=== PATIENT | female | born 1950 | race Caucasian/White ===

== ENCOUNTER → 2017-04-15 | Outpatient (CLI) | payer OTHER ==
--- NOTE | ~2017-04-15 | EXE ---
[facility] [place] [address] STRESS ECHOCARDIOGRAM Name: KIRILL VALDIVIA Room #: REG [facility]#: [id number] Admission: 04/15/17 Attend Phys: Aman Caldwell MD Discharge: Date of : 50 Date of Service: 04/15/17 1122 Report #: [id number] THIS REPORT FOR: //name// APPROVED REPORT Exam: Stress Echocardiogram Indication: Dyspnea on exertion Patient Location: Out-Patient Stress Nurse: Lawanda Ibanez RN Status: routine Ht: 5 ft 6 in HR: 76 bpm BP: 166/94 mmHg Rhythm: NSR Medical History Medications: Listed on worksheet Allergies: No known drug allergies Cardiac Risk Factors: HTN Procedure The patient underwent an Exercise Stress Test using the Rajinder Protocol. Blood pressure, heart rate, and EKG were monitored. An Echocardiogram was performed by molding technician in four stages in quad fashion. At peak stress, four selected images were obtained and placed side by side with resting images for comparison. Echo Enhancing Agent Indication: Endocardial border delineation Agent(s) / Amount(s) Used: Optison 7 cc Stress Test Details Stress Test: Exercise stress testing was performed using a Rajinder protocol. HR Resting HR: 76 bpm Max Heart Rate (APMHR): 153 bpm Max HR Achieved: 131 bpm Target HR (85% APMHR): 130 bpm % of APMHR: 85 Recovery HR: 70 bpm HR response to stress: Normal HR response to stress BP Resting BP: 166/94 mmHg Max BP: 182/90 mmHg Recovery BP: 164/84 mmHg [facility] [address] [place] [address] STRESS ECHOCARDIOGRAM Name: KIRILL VALDIVIA Room #: REG [facility]#: [id number] Admission: 04/15/17 Attend Phys: Aman Caldwell MD Discharge: Date of : 50 Date of Service: 04/15/17 1122 Report #: [id number] ECG Resting ECG: Sinus Rhythm Stress ECG: Sinus Rhythm, NSSTT changes ST Change: Non-ischemic Clinical Reason for Termination: Shortness of breath. Stress Symptoms: Dyspnea Exercise duration: 8 min 12 sec Highest Stage Achieved: Stage 3: 3.4 mph at 14% grade. Exercise capacity: 10.10 METs Pre-Stress Echo The resting Echocardiogram showed normal left ventricular contractility with an estimated Ejection Fraction of about 55-60%. Post-Stress Echo The stress Echocardiogram showed normal left ventricular contractility with an estimated Ejection Fraction of about 65-70%. Normal augmentation of wall motion in all segments on post stress images. Clinical No clinical or ECG evidence for ischemia. Conclusion Clinical Response: Non-ischemic Exercise Capacity: Average Stress ECG Response: Non-ischemic Stress Echo Images: Non-ischemic The left ventricle is normal in size and wall thickness in both the rest and stress images. Other Information Study Quality: Adequate <Conclusion> The left ventricle is normal in size and wall thickness in both the rest and stress images. <ELECTRONICALLY SIGNED> By: Aman Caldwell MD 04/15/171121 21 21 Aman Caldwell MD /INF
== END ==
LOC: CV
DX: R06.09 Other forms of dyspnea (principal)

== ENCOUNTER → 2017-05-27 | Outpatient (CLI) | payer OTHER ==
--- NOTE | ~2017-05-27 | 2DMMODE ---
[facility] [place] [address] 2 D/M-MODE ECHOCARDIOGRAM Name: KIRILL VALDIVIA Room #: REG [facility]#: [id number] Admission: 05/27/17 Attend Phys: Aman Caldwell MD Discharge: Date of : 50 Date of Service: 05/27/17 1055 Report #: [id number] THIS REPORT FOR: //name// APPROVED REPORT Study performed: 05/27/2017 10:08:41 EXAM: Comprehensive 2D, Doppler, and color-flow Echocardiogram Patient Location: Out-Patient Status: routine BSA: 1.95 HR: 62 bpm BP: 178/101 mmHg Rhythm: NSR Other Information Study Quality: Good Indications Dyspnea on exertion. HTN. 2D Dimensions RVDd: 32.25 mm LVEF(%): 73.29 (>50%) IVSd: 8.90 (7-11mm) LVDd: 45.89 mm PWd: 9.06 (7-11mm) Ascending Ao: 34.10 (22-36mm) LVDs: 26.52 (25-40mm) Aortic Root: 34.89 mm Ellison's LVEF: 73.29 % Volumes Left Atrial Volume (Systole) Single Plane 4CH: 44.79 mL Single Plane 2CH: 52.66 mL LA ESV Index: 26.00 mL/m2 Aortic Valve AoV Peak Hal.: 1.67 m/s AO Peak Gr.: 11.12 mmHg LVOT Max P.29 mmHg LVOT Max V: 1.15 m/s Mitral Valve E/A Ratio: 0.8 MV Decel. Time: 221.76 ms MV E Max Hal.: 0.75 m/s [facility] [place] [address] [place] [address] 2 D/M-MODE ECHOCARDIOGRAM Name: KIRILL VALDIVIA Room #: [facility]#: [id number] Admission: 05/27/17 Attend Phys: Aman Caldwell MD Discharge: Date of : 50 Date of Service: 05/27/17 1055 Report #: [id number] MV A Hal.: 0.89 m/s MV PHT: 64.31 ms IVRT: 87.66 ms Pulmonary Valve PV Peak Hal.: 0.89 m/s PV Peak Gr.: 3.16 mmHg Pulmonary Vein P Vein S: 0.80 m/s P Vein A: 0.37 m/s P Vein D: 0.66 m/s P Vein A Dur.: 138.4 msec P Vein S/D Ratio: 1.21 Tricuspid Valve TR Peak Hal.: 2.69 m/s RAP Estimate: 5.00 mmHg TR Peak Gr.: 29.04 mmHg PA Pressure: 35.00 mmHg Left Ventricle The left ventricle is normal size. There is normal LV segmental wall motion. There is normal left ventricular wall thickness. Left ventricular systolic function is normal. LVEF is 55-60%. Mild diastolic dysfunction is present (impaired relaxation pattern). Right Ventricle The right ventricle is normal size. The right ventricular systolic function is normal. Atria The left atrium size is normal. The right atrium size is normal. Aortic Valve The aortic valve is normal in structure. Mild aortic regurgitation. There is no aortic valvular stenosis. Mitral Valve The mitral valve is normal in structure. Mild mitral regurgitation. No evidence of mitral valve stenosis. Tricuspid Valve The tricuspid valve is normal in structure. Mild tricuspid regurgitation. Mild pulmonary hypertension with an estimated PAP of 35mmHg. Pulmonic Valve [facility] [address] [place] [address] 2 D/M-MODE ECHOCARDIOGRAM Name: KIRILL VALDIVIA Room #: REG [facility]#: [id number] Admission: 05/27/17 Attend Phys: Aman Caldwell MD Discharge: Date of : 50 Date of Service: 05/27/17 1055 Report #: [id number] The pulmonary valve is normal in structure. Mild pulmonic regurgitation. Great Vessels The aortic root is normal in size. The ascending aorta is normal in size. IVC is normal in size and collapses >50% with inspiration. Pericardium There is no pericardial effusion. <Conclusion> The left ventricle is normal size. Left ventricular systolic function is normal. Mild diastolic dysfunction is present (impaired relaxation pattern). The right ventricle is normal size. The left atrium size is normal. Mild aortic regurgitation. Mild mitral regurgitation. Mild tricuspid regurgitation. <ELECTRONICALLY SIGNED> By: Aman Caldwell MD 05/27/17 1055 1055 1055 Aman Caldwell MD /INF
== END ==
LOC: CV 09:24
DX: I08.3 Combined rheumatic disorders of mitral, aortic and tricuspid valves (principal); I10 Essential (primary) hypertension